=== PATIENT | male | born 1995 | race Caucasian/White ===

== ENCOUNTER 2024-02-16 18:37 | Inpatient (IN) | payer OTHER ==
[~2024-02-16] VITALS: Ht 180.3 cm; Wt 85.5 kg
[2024-02-16] MEDS: SODIUM CHLORIDE 0.9% 1,000 ML IV ONE (19:15)
[2024-02-16 19:18] LABS: APPEARANCE,URINE HAZY (CLEAR); COLOR,URINE YELLOW (YELLOW); GLUCOSE, URINE (UA) 70-100 mg/dL (NEGATIVE); KETONES,URINE NEGATIVE (NEGATIVE); LEUKOCYTE ESTERASE ,URINE NEGATIVE (NEGATIVE); NITRATE,URINE NEGATIVE (NEGATIVE); OCCULT BLOOD,URINE MODERATE (NEGATIVE); PH,URINE 6.5 (5.0-8.0); PH,URINE DRUG SCREEN 6.5 (5.0-8.0); PROTEIN,URINE 30-70 mg/dL (NEGATIVE); SPECIFIC GRAVITIY, URINE 1.029 (1.003-1.030)
[2024-02-16 19:26] LABS: ALCOHOL, URINE DRUG SCREEN NEGATIVE (NEGATIVE); AMPHET/METH SCREEN,URINE NEGATIVE (NEGATIVE); BARBITURATE SCREEN, URINE NEGATIVE (NEGATIVE); BENZODIAZEPINES SCREEN,URINE POSITIVE (NEGATIVE); CANNABINOID SCREEN,URINE NEGATIVE (NEGATIVE); COCAINE SCREEN,URINE NEGATIVE (NEGATIVE); METHADONE SCREEN, URINE NEGATIVE (NEGATIVE); OPIATE SCREEN,URINE NEGATIVE (NEGATIVE); PHENCYCLIDINE SCREEN,URINE NEGATIVE (NEGATIVE)
[2024-02-16 19:30] LABS: BILIRUBIN,URINE SMALL (NEGATIVE)
[2024-02-16 19:58] LABS: BACTERIA,URINE Moderate /HPF (None Seen)
[2024-02-16 20:04] LABS: BASOPHILS % (AUTO) 0.2 % (0.0-2.0); EOSINOPHILS % (AUTO) 0 % (1.0-6.0); HEMATOCRIT 45.9 % (41-53); HEMOGLOBIN 15.8 g/dL (13.5-17.5); LYMPHOCYTES % (AUTO) 6.3 % (22.0-44.0); MEAN CORPUSCULAR HEMOGLOBIN 29.3 pg (26.0-34.0); MEAN CORPUSCULAR HGB CONC 34.4 G/dL (31.0-37.0); MEAN CORPUSCULAR VOLUME 85 fL (80-100); MONOCYTES # (AUTO) 0.7 K/uL (0.1-1.0); MONOCYTES % (AUTO) 4.5 % (2.0-9.0); NEUTROPHILS # (AUTO) 14.9 K/uL (1.8-7.7); PLATELET COUNT (AUTO) 312 K/uL (150-450); RED CELL DISTRIBUTION WIDTH 13.5 % (11.5-14.5); WHITE BLOOD COUNT (AUTO) 16.7 K/uL (4.5-11.0)
[2024-02-16 20:10] LABS: CALCIUM, TOTAL 8.6 mg/dL (8.8-10.5); CREATININE 1.8 mg/dL (0.60-1.30); POTASSIUM 3.3 mmol/L (3.5-5.1)
[2024-02-16 20:25] LABS: ALBUMIN 4.1 g/dL (3.4-5.0); BILIRUBIN,TOTAL 0.8 mg/dL (0.1-1.0)
[2024-02-16] MEDS: ACETAMINOPHEN 1000 MG/ISO-OSM 100 ML IV ONE (21:39)
[2024-02-16] MEDS: *CLINICAL-LEVOFLOXACIN IVPB DOSING CLINICAL ONE (23:28)
[2024-02-16] MEDS ORDERED: ONDANSETRON HCL 4 MG/2 ML VIAL IVP PRN (23:30)
[2024-02-16] MEDS ORDERED: BISACODYL 10 MG RECTAL RECTAL SUPPOSITORY PR PRN (23:30)
[2024-02-16] MEDS: SODIUM CHLORIDE 0.9% 1,000 ML IV SCH (23:30)
[2024-02-16] MEDS ORDERED: LORazepam 2 MG/ML VIAL IVP PRN (23:30)
[2024-02-17] MEDS: LEVOFLOXACIN 500 MG/D5% WATER 100 ML IV SCH
[2024-02-17] MEDS: POTASSIUM CHLORIDE 10 MEQ ER TABLET PO ONE (01:14)
[2024-02-17] MEDS: LORazepam 1 MG TABLET PO ONE (01:55)
[2024-02-17 06:15] VITALS: BP 124/74; PULSE 83; RESP 18; TEMP 98
[2024-02-17 06:29] LABS: COVID AG,FIA SOURCE NASAL SWAB
[2024-02-17 07:05] LABS: SARS-COV2 (COVID) ANTIGEN,FIA Negative (Negative)
[2024-02-17 08:02] VITALS: BP 141/79; PULSE 89; RESP 18; TEMP 98.1
[2024-02-17] MEDS: PANTOPRAZOLE SODIUM 40 MG/VIAL IVP SCH (08:33)
[2024-02-17 08:37] LABS: ALANINE AMINOTRANSFERASE 366 U/L (12-78); ALBUMIN 3.2 g/dL (3.4-5.0); ALKALINE PHOSPHATASE 112 U/L (46-116); ANION GAP 7 mmol/L (8-16); ASPARTATE AMINOTRANSFERASE 381 U/L (15-37); CALCIUM, TOTAL 7.9 mg/dL (8.8-10.5); CARBON DIOXIDE 27 mmol/L (22-29); CHLORIDE 106 mmol/L (98-107); CREATININE 1.11 mg/dL (0.60-1.30); GLOMERULAR FILTR. RATE CALC > 60 mL/min (>60); GLUCOSE,RANDOM 96 mg/dL (70-110); POTASSIUM 3.7 mmol/L (3.5-5.1); SODIUM SERUM 140 mmol/L (136-145); TOTAL PROTEIN, SERUM 6.4 g/dL (6.4-8.2); UREA NITROGEN, BLOOD 15 mg/dL (7-18)
[2024-02-17 08:39] LABS: CREATINE KINASE, TOTAL ONLY 6743 U/L (39-308)
[2024-02-17] MEDS: DOCUSATE SODIUM 100 MG CAPSULE PO SCH (09:00)
[2024-02-17 11:59] VITALS: BP 107/70; PULSE 92; RESP 18; TEMP 98.2
[2024-02-17] MEDS: LEVOFLOXACIN 750 MG/D5% WATER 150 ML IV SCH (14:00)
[2024-02-17] MEDS ORDERED: ATROPINE SULFATE 0.1 MG/ML 10 ML SYRINGE IVP ONE (14:21)
[2024-02-17] MEDS ORDERED: EPINEPHrine 1:10,000 [1 MG/10 ML] SYRINGE IVP ONE (14:25)
[2024-02-17] MEDS ORDERED: 0.9% SODIUM CHLORIDE 10 ML SYRINGE IVP ONE (14:30)
[2024-02-17] MEDS ORDERED: 0.9% SODIUM CHLORIDE 1000 ML IRRIG SOLUTION BAG IRRIG ONE (14:32)
[2024-02-17 15:11] VITALS: BP 142/80; PULSE 97; RESP 18; TEMP 98.1
[2024-02-17 20:21] VITALS: BP 134/86; PULSE 99; RESP 18; TEMP 98
[2024-02-17] MEDS: SODIUM CHLORIDE 0.9% 1,000 ML IV SCH (21:00)
== END 2024-02-17 21:45 | disposition left against medical advice (07) | DRG 871 ==
LOC: EMS 18:39 → 6N 02-17 02:25 → 5N 02-17 04:33 → 6N 02-17 06:35
PROVIDERS: ADMIT Internal Medicine; ATTEND Internal Medicine
DX: A41.9 Sepsis, unspecified organism (principal); G92.8 Other toxic encephalopathy; K72.00 Acute and subacute hepatic failure without coma; N17.0 Acute kidney failure with tubular necrosis; M62.82 Rhabdomyolysis; N39.0 Urinary tract infection, site not specified; F19.10 Other psychoactive substance abuse, uncomplicated; Z20.822 Contact with and (suspected) exposure to COVID-19; R31.9 Hematuria, unspecified; R80.9 Proteinuria, unspecified; Z53.21 Procedure and treatment not carried out due to patient leaving prior to being seen by health care provider
CPT/HCPCS: 80053; 80307; 81001; 82550; 85025; 87086; 87186; 93005; 99291; C9113; J0131; J0171; J0461; J1956; J7030